=== PATIENT | female | born 1970 | race Caucasian/White ===

== ENCOUNTER 2016-12-21 10:38 | Day surgery (SDC) | payer OTHER ==
[2016-12-15 12:11] VITALS: BMI 22.7
[2016-12-21] MEDS ORDERED: GENTAMICIN SO4 80 MG/2 ML VIAL ONE (12:31)
[2016-12-21] MEDS ORDERED: LIDOCAINE 1% P/F 10 MG/ML VIAL ONE (12:31)
[2016-12-21] MEDS ORDERED: ceFAZolin SODIUM 1 GM VIAL ONE ×3 (12:31→14:31)
[2016-12-21] MEDS ORDERED: EPINEPHrine 1:1,000 1 MG/1 ML - 30ML VIAL (INJECTION) ONE (12:32)
[2016-12-21] MEDS ORDERED: PROPOFOL 20 ML ONE ×2 (12:45)
[2016-12-21] MEDS ORDERED: MIDAZOLAM HCL 2 MG/2 ML SINGLE DOSE VIAL ONE (12:46)
[2016-12-21] MEDS ORDERED: LIDOCAINE 1%-EPI 1:100,000 30 ML MDV IJ ONE ×2 (13:10→14:40)
[2016-12-21] MEDS ORDERED: ONDANSETRON 4 MG/2 ML VIAL ONE (13:41)
[2016-12-21] MEDS ORDERED: ONDANSETRON 4 MG/2 ML VIAL IVPUSH PRN (15:29)
[2016-12-21] MEDS ORDERED: oxyCODONE HCL 5 MG TABLET PO PRN (15:29)
[2016-12-21] MEDS: PROMETHAZINE HCL 25 MG/1 ML VIAL IVPUSH PRN ×2 (15:30→16:05)
[2016-12-21 16:47] VITALS: TEMP 98
[2016-12-21 17:08] VITALS: PULSE 64
[2016-12-21 18:11] VITALS: BP 110/64
--- NOTE | 2016-12-22 09:27 | OP ---
DATE OF OPERATION: 12/21/2016 SURGEON: Cecile Montanez MD HYDROGRAPHIC ENGINEER SURGEON: Kiya Aponte PA-C PREOPERATIVE DIAGNOSIS: 1. Bilateral acquired chest wall deformity status post bilateral mastectomy. 2. Personal history of radiation therapy. 3. Breast cancer history. 4. Asymmetry of reconstructed chest wall. POSTOPERATIVE DIAGNOSIS: 1. Bilateral acquired chest wall deformity status post bilateral mastectomy. 2. Personal history of radiation therapy. 3. Breast cancer history. 4. Asymmetry of reconstructed chest wall. OPERATIVE PROCEDURE: 1. Right breast reconstruction utilizing other technique. 2. Left breast reconstruction utilizing other technique. 3. Right breast capsulotomy, removal of right breast implant. 4. Reconstruction of right breast with silicone gel implant. OPERATIVE INDICATIONS: Patient is a young woman who underwent bilateral mastectomy and had previous complications. She underwent multiple sessions of hyperbaric oxygen treatment for wound-healing issues and now has the above indications and procedure. The risks and benefits, surgical versus nonsurgical alternatives, as well as the material complications were described to the patient on multiple occasions and again today in the holding area with her in attendance when she was marked in a standing position. OPERATIVE PROCEDURE IN DETAIL: Patient was take to the operating room, and after the induction of general anesthesia in the supine position, both arms were extended and padded, Venodyne boots were placed. Then, the entire chest wall and abdomen were prepped with ChloraPrep solution over their entire extent in the usual fashion for breast reconstruction. After time-out was achieved, attention was turned to the mastectomy scars. These were injected with 1% local lidocaine anesthesia with 1:100,000 epinephrine. The area for harvest of reconstructed tissue was injected also, and then, attention was turned to the left breast. An incision was made in the left breast mastectomy down through the skin into the subcutaneous tissue and then down to the deep areas of the chest wall medially and superiorly. A space was created for reconstructive purposes, and then, attention was turned to the right breast. An incision was made excising the mastectomy scar, and then, the incision was carried using the electrocautery down through the skin into the subcutaneous tissue, through the subcutaneous tissue, and then, opening the capsule, I performed a capsulotomy by incising the capsule down to the underlying implant. At this point, the implant was removed, sent for pathologic diagnosis. At this point, using the rail walker retractor in the usual fashion, a complete anterior capsulotomy was performed by incising the capsule after injection with 1% local lidocaine anesthesia. This was carried superiorly up to the 2nd rib, medially to the sternal fibers, down below the previously placed inframammary fold, and laterally out to the anterior axillary line elevating the entire anterior aspect of the chest wall. Because of the previous wound-healing issues, the capsule was left intact on the anterior surface to provide vascularity. Hemostasis was meticulously obtained throughout, and the pocket capsule was scored in vertical and lateral fashion creating elevation. Attention was then turned to the abdomen. Incisions were made in the flank area and undermining into the deep subcutaneous tissue down to the underlying fascia was carried out. Tissue was then harvested for reconstructive purposes. This was transferred to the back table, prepared, cleansed and readied for reconstructive purposes and transfer. Tissue was then transferred to the left breast in superomedial fashion from previously placed elevation. The tissue was placed into the upper medial and the central portions of the left breast. After this was accomplished, tissue was also transferred to the superior, medial, and central portions of the right breast. The patient was placed in the sitting position, showed good contour and symmetry, and then, an implant was chosen for the right breast. At this point, a Natrelle Inspira Style SRM 405 mL implant was chosen. This was placed into the pocket on the right breast showing good contour and symmetry. The pocket was then advanced and closed upon itself in multiple layers using 3-0 PDS suture on the deep tissue and capsule, 3-0 in the deep dermal fashion, and 4-0 Biosyn in a subcuticular fashion. Good shape and contour was seen. Good viability of the skin was noticed at this point. The abdominal area was closed with interrupted sutures and compression dressings. Dermabond and Steri-Strip dressing was placed over the reconstructed left and right breasts symmetrically. She tolerated the procedure well. She was awakened, extubated, and transferred to the recovery room in a Surgi-Bra. CECILE MONTANEZ M.D. [id number]
--- NOTE | 2016-12-24 08:51 | PATH ---
Surgical Pathology Report Patient Name: CAROL DAVIS Med. Rec. #: [id number] /Age/Gender: 1970 (Age: 46) / F Account: [id number] Location: [facility] Taken: 12/21/2016 Received: 12/21/2016 Reported: 12/24/2016 Physicians: Bradley Montanez Specimen(s) Received ASSISTANT SALES CENTER MANAGER RIGHT BREAST Clinical History Breast cancer Final Diagnosis INFORMATION SYSTEMS SECURITY MANAGER, RIGHT BREAST, REMOVAL: INFORMATION SYSTEMS SECURITY MANAGER CONSISTENT WITH BREAST TISSUE ASSISTANT SALES CENTER MANAGER (GROSS ONLY). Comment: Also see prior specimen [id number]. Electronically Signed Gerry Abarca M.D. Gross Description Received fresh, labeled "guest services associate right breast," is a 12.5 x 11.0 x 2.5 cm salazar, irregular, fluid filled device, consistent with a breast tissue guest services associate. No soft tissue is present. No sections are submitted, gross only. 12/22/201612/22/2016
== END 2016-12-21 18:45 | disposition home or self-care (01) ==
LOC: FASU 10:38
PROVIDERS: ATTEND Plastic Surgery
PROC: 0HPT0JZ Removal of Synthetic Substitute from Right Breast, Open Approach (ICD-10-PCS; 2016-12-21)
PROC: 0HUT0JZ Supplement Right Breast with Synthetic Substitute, Open Approach (ICD-10-PCS; 2016-12-21)
PROC: 0HRV07Z Replacement of Bilateral Breast with Autologous Tissue Substitute, Open Approach (ICD-10-PCS; principal; 2016-12-21 13:48)
PROC: 0HPT0JZ Removal of Synthetic Substitute from Right Breast, Open Approach (ICD-10-PCS; 2016-12-21 13:48)
DX: M95.4 Acquired deformity of chest and rib (principal); Z92.3 Personal history of irradiation; Z98.890 Other specified postprocedural states; Z85.3 Personal history of malignant neoplasm of breast; Z90.13 Acquired absence of bilateral breasts and nipples; N64.89 Other specified disorders of breast; N65.1 Disproportion of reconstructed breast
CPT/HCPCS: 84703; 88300-TC; 94760